=== PATIENT | female | born 1995 | race Caucasian/White ===

== ENCOUNTER 2019-07-31 22:50 | Emergency (ER) | payer OTHER ==
[~2019-07-31] VITALS: Ht 165.1 cm; Wt 79.5 kg
[2019-07-31] MEDS ORDERED: LEXA1TAB PO (22:58)
[2019-07-31] MEDS ORDERED: ORTH1TAB8 PO (22:58)
[2019-08-01] MEDS ORDERED: LIDOCAINE 1% MDV 20ML VIAL IM ONE (00:15)
[2019-08-01] MEDS ORDERED: AUGM875T28 PO (01:12)
[2019-08-01] MEDS ORDERED: AUGMENTIN 875 MG TAB PO ONE (01:15)
[2019-08-01 01:20] VITALS: BP 141/69
== END 2019-08-01 01:21 | disposition home or self-care (01) ==
LOC: M ED 22:50
DX: S01.551A Open bite of lip, initial encounter (principal); W54.0XXA Bitten by dog, initial encounter; Y92.019 Unspecified place in single-family (private) house as the place of occurrence of the external cause; Z79.899 Other long term (current) drug therapy